=== PATIENT | female | born 1940 | race Caucasian/White ===

== ENCOUNTER 2018-03-13 11:51 | Emergency (ER) | payer MEDICARE ==
[~2018-03-13] VITALS: Ht 152.4 cm; Wt 59.1 kg
[~2018-03-13 11:51] MED LIST: ACET500C; ACET65TA; ASPI81TA63; DUONSOL; FERR325T; PRED10TA2; PRO AIR HFA; Q VAR; ZITH250T; ZOCO20TA
[2018-03-13] MEDS ORDERED: ACETAMINOPHEN TAB 650MG DOSE (2X325MG) PO ONE (12:30)
[2018-03-13] MEDS ORDERED: IPRATROPIUM 0.5MG/ALBUTEROL 2.5MG INH SOL UD 3ML (DUONEB)(J7620) NEB ONE (12:30)
[2018-03-13] MEDS ORDERED: ALPRPOW4 (12:38)
[2018-03-13] MEDS ORDERED: AMLODIPINE PO (12:38)
[2018-03-13] MEDS ORDERED: OMEP20CA3 (12:38)
[2018-03-13 13:02] LABS: BASO % 0.2 % (0.0-1.0); HEMATOCRIT 37.4 % (36.0-47.0); HEMOGLOBIN 11.5 g/dl (12.0-15.5); LYMPH # 0.9 10^3/uL (1.5-4.5); LYMPH % 10.7 % (24.0-44.0); MEAN CORPUSCULAR HEMOGLOBIN 23.8 pg (27.0-33.0); MEAN CORPUSCULAR HGB CONC 30.7 g/dl (32.0-36.5); MEAN CORPUSCULAR VOLUME 77.4 fl (80.0-96.0); MONO # 0.5 10^3/uL (0.0-0.8); MONO % 6.2 % (0.0-5.0); NEUTROPHILS # 6.7 10^3/uL (1.8-7.7); NEUTROPHILS % 82.5 % (36.0-66.0); PLATELET COUNT, AUTOMATED 364 10^3/uL (150-450); RED BLOOD COUNT 4.83 10^6/uL (4.00-5.40); WHITE BLOOD COUNT 8.1 10^3/uL (4.0-10.0)
[2018-03-13 13:02] LABS: VENOUS BASE EXCESS -1.6 (-2.0-2.0); VENOUS HCO3 22.5 MEQ/L (23.0-27.0); VENOUS O2 SATURATION 94.8 % (60.0-80.0); VENOUS PARTIAL PRESSURE O2 76.1 mmHg (30.0-50.0); VENOUS PH 7.414 UNITS (7.330-7.430); VENOUS STANDARD HCO3 23.1 MEQ/L; VENOUS TOTAL CO2 23.6 MEQ/L (24.0-28.0)
--- NOTE | 2018-03-13 13:08 | REP ---
Portable chest x-ray: Single view. History: Dyspnea and cough. Comparison study: March 28, 2014. Findings: EKG monitoring electrodes and oxygen delivery tubing are seen. The lungs are symmetrically aerated and clear. Pleural angles are sharp. Cardiomediastinal silhouette is unremarkable. There is some aortic calcification. Pulmonary vasculature is not increased. No bony abnormalities seen. Impression: Negative portable chest x-ray. Electronically Signed by Chandan Lai MD 03/13/2018 12:59 P
[2018-03-13 13:39] LABS: INR 1.11; PROTHROMBIN TIME 14.5 SECONDS (12.1-14.4)
[2018-03-13 13:42] LABS: D-DIMER QUANT 511.06 ng/ml (<500)
[2018-03-13 13:42] LABS: ALBUMIN 3.5 GM/DL (3.2-5.2); ALT/SGPT 21 U/L (12-78); BILIRUBIN,DIRECT 0.1 MG/DL (0.0-0.2); BILIRUBIN,TOTAL 0.3 MG/DL (0.2-1.0); BLOOD UREA NITROGEN 8 MG/DL (7-18); C REACTIVE PROTEIN QUANTITATIV 2.29 MG/DL (0.00-0.30); CALCIUM LEVEL 9.3 MG/DL (8.8-10.2); CARBON DIOXIDE LEVEL 24 MEQ/L (21-32); CHLORIDE LEVEL 108 MEQ/L (98-107); CPK CREATINE PHOSPHOKINASE 218 U/L (26-192); CREATININE FOR GFR 0.72 MG/DL (0.55-1.30); FREE T4 1.12 NG/DL (0.76-1.46); GLOMERULAR FILTRATION RATE > 60.0 (>39); GLUCOSE, FASTING 118 MG/DL (70-100); MB/CK RELATIVE INDEX 1.47 (< OR =4); NT-PRO BNP 100 PG/ML (<450); POTASSIUM SERUM 3.6 MEQ/L (3.5-5.1); SODIUM LEVEL 141 MEQ/L (136-145); THYROID STIMULATING HORMONE 0.771 uIU/ML (0.358-3.740); TOTAL PROTEIN 6.8 GM/DL (6.4-8.2); TROPONIN I < 0.02 NG/ML (< 0.10)
--- NOTE | 2018-03-13 14:58 | REP ---
CT chest without contrast: History: Shortness of breath. Comparison is made with today's chest x-ray. CT findings: The lungs are somewhat hyperinflated but free of infiltrate. There is mild bibasilar linear fibrosis. Fairly prominent vascular calcification is seen in the aorta and its branches. No hilar or mediastinal mass or adenopathy is observed. Heart is not felt to be enlarged. No extrathoracic mass or adenopathy is seen. Bone window settings demonstrate to old healed rib fractures on the left posteriorly. No adrenal lesion is seen. Visualized upper abdominal structures are unremarkable. Impression: Hyperinflation consistent with some degree of COPD. Otherwise no acute disease. Electronically Signed by Chandan Lai MD 03/13/2018 02:50 P
[2018-03-13] MEDS ORDERED: guaiFENesin ER 600 MG TAB PO ONE (16:30)
[2018-03-13] MEDS ORDERED: DOXYCYCLINE HYCLATE 100 MG TAB PO ONE (16:30)
[2018-03-13 16:51] VITALS: O2SAT 93
[2018-03-13] MEDS ORDERED: oxygen ×2 (16:59→19:19)
--- NOTE | 2018-03-13 18:01 | REP ---
LEFT LOWER EXTREMITY DOPPLER VENOUS ULTRASOUND: 03/13/2018. Comparison: 12/04/2009. Clinical history: Left lower extremity pain, evaluate for DVT. Technique: The deep venous system of the left lower extremity is evaluated with glass scale imaging, compression ultrasound, color imaging and duplex Doppler interrogation. Examination from the groin through the popliteal fossa into the proximal calf. Findings: There is full compressibility from the common femoral vein in the inguinal region through the popliteal vein. Color imaging confirms patency throughout the course of the deep venous system. There is respiratory variation and augmented flow at all levels. Impression: 1. No Doppler venous ultrasound evidence of DVT in the left lower extremity. Electronically Signed by Darnell Kaufman MD 03/13/2018 05:52 P
[2018-03-13] MEDS ORDERED: KETOROLAC 30 MG/ML VIAL (J1885) IV ONE (18:30)
[2018-03-13 18:45] VITALS: BP 157/72
[2018-03-13] MEDS ORDERED: PRED20TA PO (19:18)
[2018-03-13] MEDS ORDERED: DOXY-350 PO (19:18)
--- NOTE | 2018-03-15 06:43 | ECGEPIP ---
Stationary ECG Study [facility] - ED Test Date: 2018-03-13 Pat Name: MONA HEATH Department: Room: - Gender: F Director [employer]: CITLALI : 1940 Requested By: CASEY Beltre Order Number: [id number] Reading MD: Thalia Valerio Measurements Intervals Wolf Rate: 111 P: 75 AL: 172 QRS: 52 QRSD: 78 T: 45 QT: 329 QTc: 448 Interpretive Statements SINUS TACHYCARDIA WITH OCCASIONAL ECTOPIC PREMATURE COMPLEXES ABNORMAL RHYTHM ECG NONSPECIFIC ST T WAVE CHANGES DELAYED R WAVE PROGRESSION NO OLD ECG FOR COMPARISON Electronically Signed On 03-15-2018 6:43:08 EST by Thalia Valerio
== END 2018-03-13 19:30 | disposition home or self-care (01) ==
LOC: EDBD 11:51 → M ED 11:51
DX: J44.1 Chronic obstructive pulmonary disease with (acute) exacerbation (principal); R09.02 Hypoxemia; R60.0 Localized edema; D64.9 Anemia, unspecified; Z87.19 Personal history of other diseases of the digestive system; Z79.899 Other long term (current) drug therapy; Z88.0 Allergy status to penicillin; Z88.1 Allergy status to other antibiotic agents; Z88.5 Allergy status to narcotic agent; Z88.8 Allergy status to other drugs, medicaments and biological substances; Z87.891 Personal history of nicotine dependence
CPT/HCPCS: 36415; 71045; 71250; 80048; 80076; 82550; 82553; 82803; 83880; 84439; 84443; 84484; 85025; 85379; 85610; 86140; 87040; 87486; 87581; 87633; 87798; 93005; 93041; 93971; 94640; 96374; 99285; J1885

== ENCOUNTER → 2019-02-01 | Outpatient (CLI) | payer MEDICARE ==
[~2019-02-01] MED LIST changes: +ALPRPOW4; +AMLODIPINE PO; +DOXY-350 PO; +OMEP-172; +PRED20TA PO; +oxygen
--- NOTE | 2019-02-01 14:12 | REP ---
MRI brain: 02/01/2019. Indication: Dizziness. Comparison: No previous MRI studies are available for direct comparison. Technique: Multiplanar short and long TR sequences of the brain were obtained without IV Gadolinium. Findings: Image quality is degraded by patient motion. There are no areas of restricted diffusion to indicate an acute infarction. There is no intracranial mass effect, hydrocephalus or significant shift of the midline structures. Right sphenoid sinus disease is present which appears acute. Small left mastoid effusion is noted. The large intracranial flow voids are unremarkable. There are a few small foci of elevated CT white matter signal throughout the cerebral hemispheres bilaterally. Impression: No acute intracranial process. Sequelae of chronic microangiopathic ischemic disease. Right sphenoid sinus disease . Electronically Signed by Kendrick Bender DO 02/01/2019 02:03 P
== END ==
LOC: M RAD 12:21
PROVIDERS: ATTEND Otolaryngology
DX: J32.9 Chronic sinusitis, unspecified (principal); R42 Dizziness and giddiness

== ENCOUNTER → 2019-11-08 | Outpatient (CLI) | payer MEDICARE ==
[~2019-11-08] MED LIST changes: -OMEP-172; +OMEP1CAP73
[2019-11-08 16:16] LABS: BLOOD UREA NITROGEN 10 MG/DL (7-18); CARBON DIOXIDE LEVEL 29 MEQ/L (21-32); CHLORIDE LEVEL 108 MEQ/L (98-107); CREATININE FOR GFR 0.84 MG/DL (0.55-1.30); GLOMERULAR FILTRATION RATE > 60.0 (>39); GLUCOSE, FASTING 98 MG/DL (70-100); SODIUM LEVEL 142 MEQ/L (136-145)
--- NOTE | 2019-11-23 17:07 | REP ---
CERVICAL SPINE SERIES: 9-VIEWS HISTORY: Neck pain. COMPARISON: 06/04/2007. FINDINGS: Lateral views done in flexion, extension, and neutral position demonstrate normal alignment. Vertebral body heights are preserved. There is degenerative disc narrowing at C4-5, C5-6, and C6-7. Discogenic spurring is more pronounced than on the prior study. No subluxation or instability is seen. Open-mouth odontoid view shows minimal facet hypertrophy at C1-2 and C2-3 bilaterally. There is mild vascular calcification along the course of the right carotid artery in the neck and in the thoracic aorta. Oblique radiographs demonstrate intact neural foramina bilaterally at each cervical level and normally aligned facets. IMPRESSION: Mild degenerative disc and osteoarthritic facet changes. These changes are more pronounced than on the 2008 prior study. No acute abnormality. MTDD
== END ==
LOC: M RAD 13:14
PROVIDERS: ATTEND Internal Medicine
DX: I10 Essential (primary) hypertension (principal); M50.321 Other cervical disc degeneration at C4-C5 level; M50.322 Other cervical disc degeneration at C5-C6 level; M50.323 Other cervical disc degeneration at C6-C7 level

== ENCOUNTER → 2021-07-09 | Outpatient (CLI) | payer MEDICARE ==
[~2021-07-09] MED LIST changes: +ALPR0.25 PO; +AMLO1TAB25 PO; +ASCO50TA PO; +E-Z-GAS II EFFERVESCENT PACKET (SODIUM BICARB./CITRIC ACID/SIMETHICONE) As Ordered ONE; +E-Z-HD 98% w/w 340GM SUSP BTL As Ordered ONE; +E-Z-PAQUE 96% w/w SUSP 176GM BTL As Ordered ONE; +FERR32TA PO; +IPRA0.00 INH; +OMEP-173 PO; +PHEN1TAB73 PO; +PROAAER10 INH
== END ==
LOC: M RAD 07:26
PROVIDERS: ATTEND Internal Medicine Gastroenterology
DX: C17.0 Malignant neoplasm of duodenum (principal); K31.5 Obstruction of duodenum; R93.2 Abnormal findings on diagnostic imaging of liver and biliary tract

== ENCOUNTER → 2021-08-20 | Outpatient (CLI) | payer MEDICARE ==
[~2021-08-20] MED LIST changes: -E-Z-GAS II EFFERVESCENT PACKET (SODIUM BICARB./CITRIC ACID/SIMETHICONE) As Ordered ONE; -E-Z-HD 98% w/w 340GM SUSP BTL As Ordered ONE; -E-Z-PAQUE 96% w/w SUSP 176GM BTL As Ordered ONE
== END ==
LOC: M PLARAD 12:19
PROVIDERS: ATTEND Internal Medicine Medical Oncology
DX: C17.0 Malignant neoplasm of duodenum (principal)
CPT/HCPCS: 78815; A9552

== ENCOUNTER → 2021-09-13 | Outpatient (CLI) | payer MEDICARE ==
[~2021-09-13] MED LIST changes: +CAPE1TAB2 PO; +DEXA2TA PO; +PEPC1TAB5 PO
== END ==
LOC: M PAL 14:50
PROVIDERS: ATTEND Nurse Practitioner Adult Health
DX: Z53.20 Procedure and treatment not carried out because of patient's decision for unspecified reasons (principal)

== ENCOUNTER → 2021-09-27 | Outpatient (CLI) | payer MEDICARE ==
[~2021-09-27] MED LIST changes: -PEPC1TAB5 PO
== END ==
LOC: M ONCR 12:05
PROVIDERS: ATTEND General Practice
DX: C24.1 Malignant neoplasm of ampulla of Vater (principal); Z80.1 Family history of malignant neoplasm of trachea, bronchus and lung; Z80.3 Family history of malignant neoplasm of breast; Z80.8 Family history of malignant neoplasm of other organs or systems; Z90.710 Acquired absence of both cervix and uterus; Z90.49 Acquired absence of other specified parts of digestive tract; Z88.0 Allergy status to penicillin; Z88.1 Allergy status to other antibiotic agents; Z88.5 Allergy status to narcotic agent; Z88.8 Allergy status to other drugs, medicaments and biological substances; Z87.891 Personal history of nicotine dependence; Z79.51 Long term (current) use of inhaled steroids; Z79.52 Long term (current) use of systemic steroids; Z79.899 Other long term (current) drug therapy; Z91.048 Other nonmedicinal substance allergy status

== ENCOUNTER 2021-10-04 07:10 | Outpatient (RCR) | payer MEDICARE ==
[~2021-10-04 07:10] MED LIST changes: +PEPC1TAB5 PO
[2021-10-25] MEDS ORDERED: OMEP40CA4 PO (19:13)
[2021-10-25] MEDS ORDERED: DEXA0.5E2 PO (19:13)
[2021-10-25] MEDS ORDERED: MIRA3350 PO (19:24)
[2021-10-25] MEDS ORDERED: ALPR0.254 SL (19:24)
[2021-10-25] MEDS ORDERED: GUAI100S51 PO (19:24)
[2021-10-26] MEDS ORDERED: MORP20SO PO (09:01)
== END 2021-10-24 ==
LOC: M ONCR 07:10
PROVIDERS: ATTEND General Practice
DX: C24.1 Malignant neoplasm of ampulla of Vater (principal)

== ENCOUNTER → 2021-10-25 | Outpatient (CLI) | payer MEDICARE ==
[~2021-10-25] MED LIST changes: +ALPR0.254 SL; +DEXA0.5E2 PO; +GUAI100S51 PO; +MIRA3350 PO; +MORP20SO PO; +OMEP40CA4 PO
== END ==
LOC: M PAL 15:33
PROVIDERS: ATTEND Nurse Practitioner Adult Health
DX: C17.0 Malignant neoplasm of duodenum (principal); J44.9 Chronic obstructive pulmonary disease, unspecified; R10.10 Upper abdominal pain, unspecified; R63.0 Anorexia; R11.0 Nausea; F41.9 Anxiety disorder, unspecified; F32.A Depression, unspecified; Z90.49 Acquired absence of other specified parts of digestive tract; Z90.89 Acquired absence of other organs; Z90.710 Acquired absence of both cervix and uterus; M19.90 Unspecified osteoarthritis, unspecified site; I10 Essential (primary) hypertension; K59.00 Constipation, unspecified; Z51.5 Encounter for palliative care; Z87.891 Personal history of nicotine dependence; Z88.0 Allergy status to penicillin; Z88.5 Allergy status to narcotic agent; Z88.8 Allergy status to other drugs, medicaments and biological substances; Z79.899 Other long term (current) drug therapy; Z79.51 Long term (current) use of inhaled steroids; Z80.3 Family history of malignant neoplasm of breast; Z80.1 Family history of malignant neoplasm of trachea, bronchus and lung; Z80.8 Family history of malignant neoplasm of other organs or systems; Z66 Do not resuscitate; Z91.048 Other nonmedicinal substance allergy status; R64 Cachexia; R53.83 Other fatigue; Z80.0 Family history of malignant neoplasm of digestive organs

== ENCOUNTER 2021-11-07 11:57 | Outpatient (RCR) | payer MEDICARE ==
[~2021-11-07 11:57] MED LIST changes: +ONDA4TAB6 PO
[2021-11-08] MEDS ORDERED: OLAN5ZYD PO (13:38)
[2021-11-09] MEDS ORDERED: MED REC COMMENT (22:57)
[2021-11-10] MEDS ORDERED: REGL5TAB2 PO (13:51)
[2021-11-12] MEDS ORDERED: VENTAER INH (21:47)
[2021-11-13] MEDS ORDERED: METO5TAB2 PO (03:07)
== END 2021-11-23 ==
LOC: M ONCR 11:57
PROVIDERS: ATTEND General Practice
DX: C25.0 Malignant neoplasm of head of pancreas (principal)

== ENCOUNTER 2021-11-09 18:17 | Inpatient (IN) | payer MEDICARE ==
[~2021-11-09] VITALS: Ht 149.9 cm; Wt 36.6 kg
[~2021-11-09 18:17] MED LIST changes: +OLAN5ZYD PO
[2021-11-09 19:46] LABS: BASO % 0.1 % (0.0-1.0); EOS % 0.1 % (0.0-3.0); HEMATOCRIT 41.1 % (36.0-47.0); HEMOGLOBIN 13.6 g/dl (12.0-15.5); LYMPH # 0.7 10^3/uL (1.5-5.0); LYMPH % 5.1 % (24.0-44.0); MEAN CORPUSCULAR HEMOGLOBIN 27.4 pg (27.0-33.0); MEAN CORPUSCULAR HGB CONC 33.1 g/dl (32.0-36.5); MEAN CORPUSCULAR VOLUME 82.7 fl (80.0-96.0); MONO # 1.1 10^3/uL (0.0-0.8); MONO % 8.1 % (2.0-8.0); NEUTROPHILS # 11.3 10^3/uL (1.5-8.5); NEUTROPHILS % 86.1 % (36.0-66.0); PLATELET COUNT, AUTOMATED 613 10^3/uL (150-450); RED BLOOD COUNT 4.97 10^6/uL (4.00-5.40); WHITE BLOOD COUNT 13.1 10^3/uL (4.0-10.0)
[2021-11-09 20:15] LABS: ALBUMIN 3.3 GM/DL (3.2-5.2); BILIRUBIN,DIRECT 0.7 MG/DL (0.0-0.2); BILIRUBIN,TOTAL 1.1 MG/DL (0.2-1.0); TOTAL PROTEIN 6.8 GM/DL (6.4-8.2)
[2021-11-09] MEDS ORDERED: PROMETHAZINE 25MG/ML 1ML VIAL IV ONE (21:10)
[2021-11-09] MEDS ORDERED: MORPHINE 2 MG/ML 1ML VIAL IV ONE (21:10)
[2021-11-09] MEDS ORDERED: NS 1,000 ML IV SCH (21:10)
[2021-11-09 22:23] LABS: RSV AMPLIFICATION NEGATIVE (NEGATIVE)
[2021-11-09] MEDS ORDERED: ONDANSETRON 4MG 2ML VIAL IV PRN (22:50)
[2021-11-09] MEDS ORDERED: LR 1,000 ML IV SCH (22:50)
[2021-11-09] MEDS ORDERED: ACETAMINOPHEN 1000MG 100ML IV BTL (OFIRMEV) (J0131 PER 10MG) IV ONE (22:50)
[2021-11-09] MEDS ORDERED: SALIVA SUBSTITUTE(MOUTHKOTE) BTL MT PRN (22:50)
[2021-11-09] MEDS ORDERED: MED REC COMMENT (22:57)
[2021-11-09] MEDS ORDERED: HYDROMORPHONE HCL 0.5 MG/ 0.5 ML SYRINGE (J1170 PER 1) IV PRN ×2 (23:00)
[2021-11-09] MEDS ORDERED: HOME MED LIST COMPLETE! XX SCH (23:00)
[2021-11-09] MEDS ORDERED: PANTOPRAZOLE 40MG VIAL IV ONE (23:00)
[2021-11-09] MEDS ORDERED: ALBUTEROL 90 MCG/ACT 8GM HFA INHALER INH PRN (23:00)
[2021-11-09] MEDS ORDERED: IPRATROPIUM 0.5MG/ALBUTEROL 2.5MG INH SOL UD 3ML (DUONEB) INH PRN (23:00)
[2021-11-09] MEDS: METOCLOPRAMIDE INJ 10MG/2ML VIAL (J2765 PER 1) IV SCH (23:52)
[2021-11-10] MEDS: METOCLOPRAMIDE INJ 10MG/2ML VIAL (J2765 PER 1) IV SCH (06:00)
[2021-11-10] MEDS ORDERED: PANTOPRAZOLE 40MG VIAL IV SCH (09:00)
[2021-11-10] MEDS ORDERED: HEPARIN SOD (PORCINE) 5000UNITS/ML 1ML VIAL/SYRINGE SC SCH (09:00)
[2021-11-10 09:52] LABS: BASO % 0.1 % (0.0-1.0); EOS # 0.1 10^3/uL (0.0-0.5); EOS % 0.7 % (0.0-3.0); HEMATOCRIT 34.9 % (36.0-47.0); LYMPH # 0.9 10^3/uL (1.5-5.0); LYMPH % 8.5 % (24.0-44.0); MEAN CORPUSCULAR HEMOGLOBIN 27.7 pg (27.0-33.0); MEAN CORPUSCULAR HGB CONC 32.7 g/dl (32.0-36.5); MEAN CORPUSCULAR VOLUME 84.7 fl (80.0-96.0); MONO # 1.2 10^3/uL (0.0-0.8); NEUTROPHILS # 8.5 10^3/uL (1.5-8.5); NEUTROPHILS % 79.3 % (36.0-66.0); RED BLOOD COUNT 4.12 10^6/uL (4.00-5.40); WHITE BLOOD COUNT 10.8 10^3/uL (4.0-10.0)
[2021-11-10 09:53] LABS: HEMOGLOBIN 11.4 g/dl (12.0-15.5); PLATELET COUNT, AUTOMATED 422 10^3/uL (150-450)
[2021-11-10 09:59] LABS: INR 0.95; PROTHROMBIN TIME 13.1 SECONDS (12.7-14.5)
[2021-11-10 10:00] LABS: PARTIAL THROMBOPLASTIN TIME 31.1 SECONDS (25.9-37.0)
[2021-11-10 10:30] VITALS: BP 136/62
[2021-11-10 10:37] LABS: ALBUMIN 2.5 GM/DL (3.2-5.2); CALCIUM LEVEL 8.7 MG/DL (8.8-10.2); CREATININE FOR GFR 1.3 MG/DL (0.55-1.30); GLOMERULAR FILTRATION RATE 42.1 (>39); POTASSIUM SERUM 3.3 MEQ/L (3.5-5.1); TOTAL PROTEIN 5.3 GM/DL (6.4-8.2)
[2021-11-10] MEDS ORDERED: REGL5TAB2 PO (13:51)
== END 2021-11-10 10:25 | disposition left against medical advice (07) | DRG 380 ==
LOC: M ED 18:17 → EDBD 18:17 → M ED INP 22:47
PROVIDERS: ADMIT Family Medicine; ATTEND Family Medicine
DX: K31.1 Adult hypertrophic pyloric stenosis (principal); E43 Unspecified severe protein-calorie malnutrition; C17.0 Malignant neoplasm of duodenum; N17.9 Acute kidney failure, unspecified; Z68.1 Body mass index [BMI] 19.9 or less, adult; R64 Cachexia; Z86.73 Personal history of transient ischemic attack (TIA), and cerebral infarction without residual deficits; J44.9 Chronic obstructive pulmonary disease, unspecified; I10 Essential (primary) hypertension; E78.5 Hyperlipidemia, unspecified; Z92.3 Personal history of irradiation; Z90.49 Acquired absence of other specified parts of digestive tract; Z90.79 Acquired absence of other genital organ(s); Z66 Do not resuscitate; Z79.899 Other long term (current) drug therapy; Z88.0 Allergy status to penicillin; Z88.1 Allergy status to other antibiotic agents; Z88.5 Allergy status to narcotic agent; Z88.3 Allergy status to other anti-infective agents; Z88.8 Allergy status to other drugs, medicaments and biological substances; Z20.822 Contact with and (suspected) exposure to COVID-19; Z99.81 Dependence on supplemental oxygen; K86.89 Other specified diseases of pancreas; R94.5 Abnormal results of liver function studies

== ENCOUNTER 2021-11-12 21:31 | Inpatient (IN) | payer MEDICARE ==
[~2021-11-12] VITALS: Ht 149.9 cm; Wt 37.5 kg
[~2021-11-12 21:31] MED LIST changes: -DOXY-350 PO; +DOXY-444 PO; +MED REC COMMENT; +REGL5TAB2 PO
[2021-11-12] MEDS ORDERED: VENTAER INH (21:47)
[2021-11-12] MEDS ORDERED: METOCLOPRAMIDE INJ 10MG/2ML VIAL (J2765 PER 1) IV ONE (22:35)
[2021-11-12] MEDS ORDERED: MORPHINE 4 MG/ML 1ML VIAL/SYRINGE IV ONE (22:35)
[2021-11-13] MEDS ORDERED: IPRATROPIUM 0.5MG/ALBUTEROL 2.5MG INH SOL UD 3ML (DUONEB) NEB ONE (00:05)
[2021-11-13 02:08] LABS: BASO % 0.2 % (0.0-1.0); EOS % 0.3 % (0.0-3.0); HEMATOCRIT 42.6 % (36.0-47.0); HEMOGLOBIN 13.7 g/dl (12.0-15.5); LYMPH # 1.3 10^3/uL (1.5-5.0); LYMPH % 12.3 % (24.0-44.0); MEAN CORPUSCULAR HEMOGLOBIN 27.6 pg (27.0-33.0); MEAN CORPUSCULAR HGB CONC 32.2 g/dl (32.0-36.5); MEAN CORPUSCULAR VOLUME 85.9 fl (80.0-96.0); MONO % 9.9 % (2.0-8.0); NEUTROPHILS # 8.1 10^3/uL (1.5-8.5); NEUTROPHILS % 76.8 % (36.0-66.0); PLATELET COUNT, AUTOMATED 504 10^3/uL (150-450); RED BLOOD COUNT 4.96 10^6/uL (4.00-5.40); WHITE BLOOD COUNT 10.5 10^3/uL (4.0-10.0)
[2021-11-13 02:31] LABS: CK-MB VALUE MASS 1.5 NG/ML (<3.6); MB/CK RELATIVE INDEX 3.12 (< OR =4)
[2021-11-13 02:35] LABS: ALBUMIN 3.1 GM/DL (3.2-5.2); ALT/SGPT 86 U/L (12-78); BILIRUBIN,TOTAL 1.7 MG/DL (0.2-1.0); BLOOD UREA NITROGEN 30 MG/DL (7-18); CALCIUM LEVEL 9.3 MG/DL (8.8-10.2); CARBON DIOXIDE LEVEL 32 MEQ/L (21-32); CHLORIDE LEVEL 92 MEQ/L (98-107); CREATININE FOR GFR 0.79 MG/DL (0.55-1.30); GLOMERULAR FILTRATION RATE > 60.0 (>39); GLUCOSE, FASTING 94 MG/DL (70-100); MAGNESIUM LEVEL 2.3 MG/DL (1.8-2.4); NT-PRO BNP 565 PG/ML (<450); SODIUM LEVEL 137 MEQ/L (136-145); TOTAL PROTEIN 6.4 GM/DL (6.4-8.2)
[2021-11-13] MEDS ORDERED: METOCLOPRAMIDE INJ 10MG/2ML VIAL (J2765 PER 1) IV ONE (02:35)
[2021-11-13] MEDS ORDERED: MORPHINE 4 MG/ML 1ML VIAL/SYRINGE IV ONE (02:35)
[2021-11-13] MEDS ORDERED: POTASSIUM CHLORIDE 10% LIQ 20 MEQ/15 ML UDC PO ONE ×3 (02:50→07:00)
[2021-11-13] MEDS ORDERED: METO5TAB2 PO (03:07)
[2021-11-13] MEDS ORDERED: HOME MED LIST COMPLETE! XX SCH (03:10)
[2021-11-13] MEDS ORDERED: NS 1,000 ML IV SCH (03:10)
[2021-11-13 04:12] LABS: RSV AMPLIFICATION NEGATIVE (NEGATIVE)
[2021-11-13 04:30] VITALS: BP 142/72
[2021-11-13] MEDS: KCL 40MEQ in NS 1000ML 1,000 ML IV SCH ×2 (04:47→17:02)
[2021-11-13] MEDS: PANTOPRAZOLE 40MG VIAL IV SCH (04:47)
[2021-11-13] MEDS ORDERED: MORPHINE 2 MG/ML 1ML VIAL IV PRN (06:00)
[2021-11-13 06:44] LABS: BASO % 0.2 % (0.0-1.0); EOS % 0.3 % (0.0-3.0); HEMATOCRIT 40.6 % (36.0-47.0); HEMOGLOBIN 12.7 g/dl (12.0-15.5); LYMPH # 0.6 10^3/uL (1.5-5.0); LYMPH % 6.6 % (24.0-44.0); MEAN CORPUSCULAR HEMOGLOBIN 27.3 pg (27.0-33.0); MEAN CORPUSCULAR HGB CONC 31.3 g/dl (32.0-36.5); MEAN CORPUSCULAR VOLUME 87.1 fl (80.0-96.0); MONO % 11.2 % (2.0-8.0); NEUTROPHILS # 7.5 10^3/uL (1.5-8.5); NEUTROPHILS % 81.3 % (36.0-66.0); PLATELET COUNT, AUTOMATED 436 10^3/uL (150-450); RED BLOOD COUNT 4.66 10^6/uL (4.00-5.40); WHITE BLOOD COUNT 9.3 10^3/uL (4.0-10.0)
[2021-11-13] MEDS: ENOXAPARIN 40MG/0.4ML SYRINGE (J1650 PER 10MG) SC SCH (08:41)
[2021-11-13] MEDS: METOCLOPRAMIDE INJ 10MG/2ML VIAL (J2765 PER 1) IV PRN ×2 (10:19→20:52)
[2021-11-13 14:00] VITALS: BP 146/69
[2021-11-13] MEDS ORDERED: LORazepam 0.5 MG TAB PO ONE (14:00)
[2021-11-13] MEDS ORDERED: PROCHLORPERAZINE 5MG TAB PO PRN (18:45)
[2021-11-13] MEDS: MORPHINE 4 MG/ML 1ML VIAL/SYRINGE IV PRN (20:51)
[2021-11-13] MEDS: ALBUTEROL SULFATE 2.5 MG/0.5 ML INH NEB SOLN NEB PRN (21:27)
[2021-11-13 21:58] VITALS: BP 141/71
[2021-11-14] MEDS ORDERED: UNRESOLVED CLARIFICATION ENTRY XX SCH (00:01)
[2021-11-14] MEDS: PANTOPRAZOLE 40MG VIAL IV SCH (03:58)
[2021-11-14] MEDS: METOCLOPRAMIDE INJ 10MG/2ML VIAL (J2765 PER 1) IV PRN ×2 (04:09→08:14)
[2021-11-14] MEDS: MORPHINE 4 MG/ML 1ML VIAL/SYRINGE IV PRN ×2 (04:09→12:53)
[2021-11-14] MEDS: KCL 40MEQ in NS 1000ML 1,000 ML IV SCH (05:37)
[2021-11-14 06:00] VITALS: BP 148/72
[2021-11-14 06:05] LABS: BASO % 0.1 % (0.0-1.0); EOS # 0.1 10^3/uL (0.0-0.5); EOS % 0.9 % (0.0-3.0); HEMATOCRIT 38.4 % (36.0-47.0); HEMOGLOBIN 11.8 g/dl (12.0-15.5); LYMPH # 0.5 10^3/uL (1.5-5.0); LYMPH % 5.1 % (24.0-44.0); MEAN CORPUSCULAR HEMOGLOBIN 27.3 pg (27.0-33.0); MEAN CORPUSCULAR HGB CONC 30.7 g/dl (32.0-36.5); MEAN CORPUSCULAR VOLUME 88.9 fl (80.0-96.0); MONO # 0.9 10^3/uL (0.0-0.8); MONO % 9.7 % (2.0-8.0); NEUTROPHILS % 83.7 % (36.0-66.0); PLATELET COUNT, AUTOMATED 376 10^3/uL (150-450); RED BLOOD COUNT 4.32 10^6/uL (4.00-5.40); WHITE BLOOD COUNT 9.6 10^3/uL (4.0-10.0)
[2021-11-14 06:45] LABS: ALBUMIN 2.5 GM/DL (3.2-5.2); ALT/SGPT 65 U/L (12-78); BILIRUBIN,TOTAL 2.8 MG/DL (0.2-1.0); BLOOD UREA NITROGEN 18 MG/DL (7-18); CALCIUM LEVEL 8.6 MG/DL (8.8-10.2); CARBON DIOXIDE LEVEL 30 MEQ/L (21-32); CHLORIDE LEVEL 109 MEQ/L (98-107); GLOMERULAR FILTRATION RATE > 60.0 (>39); GLUCOSE, FASTING 103 MG/DL (70-100); POTASSIUM SERUM 3.7 MEQ/L (3.5-5.1); SODIUM LEVEL 147 MEQ/L (136-145); TOTAL PROTEIN 5.4 GM/DL (6.4-8.2)
[2021-11-14] MEDS: ENOXAPARIN 40MG/0.4ML SYRINGE (J1650 PER 10MG) SC SCH (08:14)
[2021-11-14] MEDS ORDERED: ONDANSETRON 4MG 2ML VIAL IV SCH (12:00)
[2021-11-14] MEDS: SCOPOLAMINE 1MG TRANSDERMAL PATCH TOP SCH (12:52)
[2021-11-14] MEDS: D5W 1,000 ML IV SCH (12:53)
[2021-11-14 14:00] VITALS: BP 149/91
[2021-11-14] MEDS: PROMETHAZINE 25MG/ML 1ML VIAL IV PRN ×2 (14:26→21:09)
[2021-11-14] MEDS: ALBUTEROL SULFATE 2.5 MG/0.5 ML INH NEB SOLN NEB PRN (20:09)
[2021-11-14 20:52] VITALS: BP 161/86
[2021-11-14] MEDS ORDERED: cefTRIAXone SOD 1 GM in D5W MINI-BAG PLUS 50 ML IV SCH (21:00)
[2021-11-14] MEDS ORDERED: ACETAMINOPHEN 1000MG 100ML IV BTL (OFIRMEV) (J0131 PER 10MG) IV ONE (21:10)
[2021-11-14] MEDS: metroNIDAZOLE 500 MG in IV 1 EA IV SCH (23:23)
[2021-11-15] MEDS: D5W 1,000 ML IV SCH (01:27)
[2021-11-15 02:00] VITALS: BP 151/78
[2021-11-15] MEDS ORDERED: ONDANSETRON 4MG 2ML VIAL IV PRN (02:00)
[2021-11-15] MEDS: PROCHLORPERAZINE 10MG 2ML VIAL IV PRN ×2 (02:37→16:58)
[2021-11-15] MEDS: PANTOPRAZOLE 40MG VIAL IV SCH (03:12)
[2021-11-15] MEDS: PROMETHAZINE 25MG/ML 1ML VIAL IV PRN ×2 (05:09→12:18)
[2021-11-15] MEDS: metroNIDAZOLE 500 MG in IV 1 EA IV SCH (05:09)
[2021-11-15] MEDS: ALBUTEROL SULFATE 2.5 MG/0.5 ML INH NEB SOLN NEB PRN (05:36)
[2021-11-15 06:00] VITALS: BP 153/78
[2021-11-15 06:29] LABS: BASO % 0.1 % (0.0-1.0); EOS % 0.3 % (0.0-3.0); HEMATOCRIT 38.1 % (36.0-47.0); LYMPH # 0.5 10^3/uL (1.5-5.0); LYMPH % 6.4 % (24.0-44.0); MEAN CORPUSCULAR HEMOGLOBIN 27.3 pg (27.0-33.0); MEAN CORPUSCULAR HGB CONC 31.5 g/dl (32.0-36.5); MEAN CORPUSCULAR VOLUME 86.8 fl (80.0-96.0); MONO # 0.7 10^3/uL (0.0-0.8); MONO % 9.4 % (2.0-8.0); NEUTROPHILS # 6.6 10^3/uL (1.5-8.5); NEUTROPHILS % 83.3 % (36.0-66.0); PLATELET COUNT, AUTOMATED 301 10^3/uL (150-450); RED BLOOD COUNT 4.39 10^6/uL (4.00-5.40); WHITE BLOOD COUNT 7.9 10^3/uL (4.0-10.0)
[2021-11-15 07:29] LABS: CK-MB VALUE MASS < 1.0 NG/ML (<3.6); CPK CREATINE PHOSPHOKINASE 25 U/L (26-192)
[2021-11-15 07:33] LABS: ALBUMIN 2.4 GM/DL (3.2-5.2); ALT/SGPT 68 U/L (12-78); BILIRUBIN,TOTAL 1.8 MG/DL (0.2-1.0); BLOOD UREA NITROGEN 12 MG/DL (7-18); CALCIUM LEVEL 8.4 MG/DL (8.8-10.2); CARBON DIOXIDE LEVEL 34 MEQ/L (21-32); CHLORIDE LEVEL 98 MEQ/L (98-107); CREATININE FOR GFR 0.64 MG/DL (0.55-1.30); GLOMERULAR FILTRATION RATE > 60.0 (>39); GLUCOSE, FASTING 180 MG/DL (70-100); POTASSIUM SERUM 2.8 MEQ/L (3.5-5.1); SODIUM LEVEL 136 MEQ/L (136-145); TOTAL PROTEIN 5.4 GM/DL (6.4-8.2)
[2021-11-15] MEDS: KCL 10MEQ/100ML SWI (KRUN) 10 MEQ in IV 1 EA IV SCH ×4 (08:00→10:24)
[2021-11-15] MEDS ORDERED: MAG SULF 1GM/100ML (MAG RUN) 1 GM in IV 1 EA IV ONE (09:00)
[2021-11-15] MEDS: MORPHINE 4 MG/ML 1ML VIAL/SYRINGE IV PRN ×2 (12:17→16:58)
[2021-11-15] MEDS: LORazepam 1 MG TAB PO PRN (14:36)
[2021-11-16] MEDS: PANTOPRAZOLE 40MG VIAL IV SCH (04:00)
[2021-11-16] MEDS: MORPHINE 4 MG/ML 1ML VIAL/SYRINGE IV PRN (05:33)
[2021-11-16] MEDS: ALBUTEROL SULFATE 2.5 MG/0.5 ML INH NEB SOLN NEB PRN (05:37)
[2021-11-16] MEDS: PROMETHAZINE 25MG/ML 1ML VIAL IV PRN (05:37)
[2021-11-16] MEDS ORDERED: PILL CUTTER 1 EACH XX PRN (23:15)
[2021-11-16] MEDS ORDERED: NS 500 ML IV ONE (23:15)
[2021-11-16] MEDS ORDERED: NORCO, ANEXSIA 5/325MG TABLET (HYDROcodone/ACETAMINOPHEN) PO PRN (23:15)
[2021-11-17] MEDS: PANTOPRAZOLE 40MG VIAL IV SCH (04:38)
[2021-11-17] MEDS: MORPHINE 4 MG/ML 1ML VIAL/SYRINGE IV PRN ×2 (12:03→16:23)
[2021-11-17] MEDS: SCOPOLAMINE 1MG TRANSDERMAL PATCH TOP SCH (12:04)
[2021-11-18] MEDS: PANTOPRAZOLE 40MG VIAL IV SCH (03:12)
[2021-11-18] MEDS: PROCHLORPERAZINE 10MG 2ML VIAL IV PRN (10:11)
[2021-11-18] MEDS: MORPHINE 4 MG/ML 1ML VIAL/SYRINGE IV PRN ×2 (14:57→23:57)
[2021-11-19] MEDS: PANTOPRAZOLE 40MG VIAL IV SCH (04:00)
[2021-11-19] MEDS: PROCHLORPERAZINE 10MG 2ML VIAL IV PRN (14:02)
[2021-11-20] MEDS: PROCHLORPERAZINE 10MG 2ML VIAL IV PRN (00:01)
[2021-11-20] MEDS: MORPHINE 4 MG/ML 1ML VIAL/SYRINGE IV PRN ×2 (00:01→09:50)
[2021-11-20] MEDS: PANTOPRAZOLE 40MG VIAL IV SCH (04:00)
[2021-11-20] MEDS: PROMETHAZINE 25MG/ML 1ML VIAL IV PRN (09:56)
[2021-11-20] MEDS: SCOPOLAMINE 1MG TRANSDERMAL PATCH TOP SCH (12:19)
[2021-11-21] MEDS: MORPHINE 4 MG/ML 1ML VIAL/SYRINGE IV PRN (00:26)
[2021-11-21] MEDS: PROCHLORPERAZINE 10MG 2ML VIAL IV PRN (00:26)
[2021-11-21] MEDS: PANTOPRAZOLE 40MG VIAL IV SCH (02:52)
[2021-11-21] MEDS: LORazepam 1 MG TAB PO PRN (09:00)
[2021-11-22] MEDS: PANTOPRAZOLE 40MG VIAL IV SCH (03:11)
[2021-11-22] MEDS ORDERED: MORPHINE SULFATE ORAL SOLN 10 MG/5 ML UD SL PRN (14:40)
[2021-11-22] MEDS ORDERED: ONDANSETRON 4MG ORAL DISINTEGRATING TAB SL PRN (19:50)
[2021-11-22] MEDS ORDERED: PROMETHAZINE 25 MG TAB PO PRN (19:50)
[2021-11-22] MEDS ORDERED: PROMETHAZINE 25MG SUPP PR PRN (19:50)
[2021-11-23] MEDS: PANTOPRAZOLE 40MG TAB (PROTONIX) PO SCH (09:00)
[2021-11-24] MEDS: PANTOPRAZOLE 40MG TAB (PROTONIX) PO SCH (08:49)
[2021-11-24] MEDS ORDERED: SCOPOLAMINE 1MG TRANSDERMAL PATCH TOP SCH (12:00)
[2021-11-25] MEDS: PANTOPRAZOLE 40MG TAB (PROTONIX) PO SCH (09:00)
== END 2021-11-26 01:23 | disposition expired | DRG 444 ==
LOC: EDBD 21:31 → M ED 21:31 → M ED INP 11-13 02:50 → ENRESERV 11-13 03:14 → M MSPAV 11-13 04:26
PROVIDERS: ADMIT Family Medicine; ATTEND Student in an Organized Health Care Education/Training Program
DX: K83.1 Obstruction of bile duct (principal); E43 Unspecified severe protein-calorie malnutrition; I26.99 Other pulmonary embolism without acute cor pulmonale; C17.0 Malignant neoplasm of duodenum; J96.11 Chronic respiratory failure with hypoxia; R45.851 Suicidal ideations; Z66 Do not resuscitate; Z86.73 Personal history of transient ischemic attack (TIA), and cerebral infarction without residual deficits; J44.9 Chronic obstructive pulmonary disease, unspecified; I10 Essential (primary) hypertension; E78.5 Hyperlipidemia, unspecified; Z92.3 Personal history of irradiation; Z99.81 Dependence on supplemental oxygen; Z90.49 Acquired absence of other specified parts of digestive tract; Z90.79 Acquired absence of other genital organ(s); E87.6 Hypokalemia; K21.9 Gastro-esophageal reflux disease without esophagitis; R53.1 Weakness; Z79.899 Other long term (current) drug therapy; Z88.0 Allergy status to penicillin; Z88.1 Allergy status to other antibiotic agents; Z88.5 Allergy status to narcotic agent; Z88.8 Allergy status to other drugs, medicaments and biological substances; Z87.891 Personal history of nicotine dependence; G89.3 Neoplasm related pain (acute) (chronic); F43.22 Adjustment disorder with anxiety